=== PATIENT | male | born 1980 | race Caucasian/White ===

== ENCOUNTER 2016-10-28 19:02 | Inpatient (IN) | payer MEDICAID ==
--- NOTE | 2016-10-28 19:19 | EDPHY ---
H & P Stated Complaint: Chest pain HPI/ROS: Chief complaint: Chest pain HPI: 35-year-old homeless male presenting complaining of sharp left-sided chest pain intermittently for the last 2 and 0.5 hours. Patient states it does hurt take a deep breath. Denies any recent illness. No cough. No fevers or chills. No nausea or vomiting. Denies any chest trauma. Pain is severe not goes completely away. Is in the left side of his chest. Does not have a history of the same. He does smoke. Denies any alcohol or other drug use. Does not take any medications. Denies family history of coronary artery disease. ROS: 10 point Review of Systems is negative except as noted in the HPI. Past medical history: Denies Medications: Denies Allergies: No known drug allergies Physical exam: Gen: Awake, Alert, No Distress, disheveled-appearing, slow to answer HEENT: Nose: no rhinorrhea Eyes: PERRLA, EOMI Mouth: Moist mucosa Neck: Supple, no JVD Chest: Left anterior chest wall tenderness to palpation reproducing presenting complaint, lungs clear to auscultation Heart: S1, S2 normal, no murmur Abd: Soft, non-tender, no guarding Back: no CVA tenderness, no midline tenderness Ext: no edema, non-tender Skin: no rash Neuro: CN II-XII intact, Sensation grossly intact, Strength 5/5 in bilateral upper and lower extremities - Personal History Current Tetanus/Diphtheria Vaccine: Yes - Medical/Surgical History Hx Asthma: No Hx Chronic Respiratory Disease: No Hx Diabetes: No Hx Cardiac Disease: No Hx Renal Disease: No Hx Cirrhosis: No Hx Alcoholism: Yes Hx HIV/AIDS: No Hx Splenectomy or Spleen Trauma: No Other PMH: concusions x 7, major depression, suicide attempt, ETOH abuse, Methamphetamine abuse, [place] to bilateral conjunctiva, ASD, GERD,. psh: LEFT ARM INFECTION AND SURGERY 08/26 - Social History Smoking Status: Current every day smoker Constitutional: Initial Vital Signs Temperature (C) 37.2 C 10/28/16 19:09 Heart Rate 128 H 10/28/16 19:09 Respiratory Rate 24 H 10/28/16 19:09 Blood Pressure 103/87 H 10/28/16 19:09 O2 Sat (%) 91 L 10/28/16 19:09 O2 Delivery Mode Room Air O2 (L/minute) 2 Allergies/Adverse Reactions: No Known Allergies Allergy (Verified 02/27/16 03:35) Home Medications: Medication Instructions Recorded NK [No Known Home Meds] 10/28/16 Medical Decision Making - Diagnostics EKG Interpretation: ECG: Time, 1919: Sinus tachycardia with a rate of 120, left anterior fascicular block, no acute ST or T-wave changes. Imaging: Chest x-ray: There is a new left lower lobe round infiltrate as compared to a chest x-ray from August. ED Course/Re-evaluation: 35-year-old male coming in with hypoxemia, tachycardia, infiltrate on chest x- ray consistent with pneumonia. He does meet SIRS criteria. Lactic acid has been sent. He is getting 2 L of fluid IV. He has got some Toradol. I have given him 1 g of ceftriaxone IV and 500 mg of azithromycin p.o.. I have discussed with Dr. Kasey Fuentes, hospitalist. Will admit to the step-down unit for further evaluation. Patient is mildly agitated poor historian and has a history of methamphetamine use and I suspect this might be meth in his system at this time contributing to his clinical presentation. - Data Points Laboratory Results: Laboratory Results 10/28/16 19:15 10/28/16 19:15 10/28/16 10/28/16 10/28/16 20:20 19:15 19:15 WBC 16.20 10^3/uL H 10^3/uL (3.80-9.50) RBC 4.65 10^6/uL 10^6/uL (4.40-6.38) Hgb 14.1 g/dL g/dL (13.7-17.5) Hct 40.2 % % (40.0-51.0) MCV 86.5 fL fL (81.5-99.8) MCH 30.3 pg pg (27.9-34.1) MCHC 35.1 g/dL g/dL (32.4-36.7) RDW 13.7 % % (11.5-15.2) Plt Count 275 10^3/uL 10^3/uL (150-400) MPV 9.8 fL fL (8.7-11.7) Neut % (Auto) 86.0 % H % (39.3-74.2) Lymph % (Auto) 5.7 % L % (15.0-45.0) [place] % (Auto) 7.3 % % (4.5-13.0) Eos % (Auto) 0.1 % L % (0.6-7.6) Baso % (Auto) 0.3 % % (0.3-1.7) Nucleat RBC Rel Count 0.0 % % (0.0-0.2) Absolute Neuts (auto) 13.93 10^3/uL H 10^3/uL (1.70-6.50) Absolute Lymphs (auto) 0.93 10^3/uL L 10^3/uL (1.00-3.00) Absolute Monos (auto) 1.19 10^3/uL H 10^3/uL (0.30-0.80) Absolute Eos (auto) 0.01 10^3/uL L 10^3/uL (0.03-0.40) Absolute Basos (auto) 0.05 10^3/uL 10^3/uL (0.02-0.10) Absolute Nucleated RBC 0.00 10^3/uL 10^3/uL (0-0.01) Immature Gran % 0.6 % % (0.0-1.1) Immature Gran # 0.09 10^3/uL 10^3/uL (0.00-0.10) VBG Lactic Acid 0.5 mmol/L L mmol/L (0.7-2.1) Sodium 136 mEq/L mEq/L (134-144) Potassium 3.9 mEq/L mEq/L (3.5-5.2) Chloride 100 mEq/L mEq/L (97-110) Carbon Dioxide 24 mEq/l mEq/l (22-31) Anion Gap 12 mEq/L mEq/L (8-16) BUN 20 mg/dL mg/dL (7-23) Creatinine 1.0 mg/dL mg/dL (0.7-1.3) Estimated GFR > 60 Glucose 84 mg/dL mg/dL (70-100) Calcium 9.2 mg/dL mg/dL (8.5-10.4) Troponin I < 0.012 ng/mL ng/mL (0-0.034) Medications Given: Discontinued Medications Azithromycin (Zithromax) 500 mg PO EDNOW ONE PRN Reason: Protocol Stop: 10/28/16 20:05 Last Admin: 10/28/16 20:26 Dose: 500 mg Ceftriaxone Sodium/Dextrose (Rocephin 1 Gm (Premix)) 50 mls @ 100 mls/hr IV EDNOW ONE PRN Reason: Protocol Stop: 10/28/16 20:33 Last Admin: 10/28/16 20:26 Dose: 50 mls Sodium Chloride (Ns) 1,000 mls @ 0 mls/hr IV ONCE ONE PRN Reason: Wide Open Stop: 10/28/16 20:28 Last Admin: 10/28/16 20:32 Dose: 1,000 mls Sodium Chloride (Ns) 1,000 mls @ 0 mls/hr IV ONCE ONE PRN Reason: Wide Open Stop: 10/28/16 20:01 Last Admin: 10/28/16 20:05 Dose: 1,000 mls Ketorolac Tromethamine (Toradol) 15 mg IVP ONCE ONE Stop: 10/28/16 20:28 Last Admin: 10/28/16 20:20 Dose: 15 mg Departure - Departure Disposition: [facility] Inpatient Acute Clinical Impression: Pneumonia Condition: Fair Referrals: Patient,NotPresent [Unknown] - As per Instructions
--- NOTE | 2016-10-28 19:22 | CPEKG ---
Heart Rate: 120 RR Interval: 500 P-R Interval: 148 QRSD Interval: 84 QT Interval: 316 QTC Interval: 447 P [place]: 65 QRS [place]: 261 T Wave [place]: 65 EKG Severity - ABNORMAL ECG - EKG Impression: SINUS TACHYCARDIA EKG Impression: LEFT ANTERIOR FASCICULAR BLOCK Electronically Signed By: Dutch Raman 30-Oct-2016 16:35:55
[2016-10-28 19:29] LABS: % IMMATURE GRANULYOCYTES 0.6 % (0.0-1.1); ABSOLUTE IMMATURE GRANULOCYTES 0.09 10^3/uL (0.00-0.10); ADD DIFF? NO; ADD MORPH? NO; ADD SCAN? NO; ATYPICAL LYMPHOCYTE FLAG 0 (0-99); FRAGMENT RBC FLAG 0 (0-99); HEMATOCRIT 40.2 % (40.0-51.0); HEMOGLOBIN 14.1 g/dL (13.7-17.5); LEFT SHIFT FLG 10 (0-99); LIPEMIA HEMOLYSIS FLAG 90 (0-99); MEAN CELL HEMOGLOBIN 30.3 pg (27.9-34.1); MEAN CELL HEMOGLOBIN CONCENTR. 35.1 g/dL (32.4-36.7); MEAN CELL VOLUME 86.5 fL (81.5-99.8); MEAN PLATELET VOLUME 9.8 fL (8.7-11.7); PLATELET CLUMPS FLAG 0 (0-99); PLATELET COUNT 275 10^3/uL (150-400); RED BLOOD CELL COUNT 4.65 10^6/uL (4.40-6.38); RED CELL DISTRIBUTION WIDTH 13.7 % (11.5-15.2)
[2016-10-28 19:43] LABS: ANION GAP 12 mEq/L (8-16); CALCIUM 9.2 mg/dL (8.5-10.4); CARBON DIOXIDE 24 mEq/l (22-31); CHLORIDE 100 mEq/L (97-110); GLOMERULAR FILTRATION RATE > 60; GLUCOSE 84 mg/dL (70-100); POTASSIUM 3.9 mEq/L (3.5-5.2); SODIUM 136 mEq/L (134-144)
[2016-10-28 19:55] LABS: TROPONIN I < 0.012 ng/mL (0-0.034)
[2016-10-28] MEDS ORDERED: NS 1,000 ML IV ONE ×3 (20:00→21:56)
[2016-10-28] MEDS ORDERED: AZITHROMYCIN 250 MG TAB PO ONE (20:04)
[2016-10-28] MEDS ORDERED: KETOROLAC 15 MG/1 ML SDV ONE (20:14)
[2016-10-28] MEDS ORDERED: KETOROLAC 15 MG/1 ML SDV IVP ONE (20:27)
[2016-10-28] MEDS ORDERED: ONDANSETRON DISINTEGRATING 4 MG TAB PO PRN (21:46)
[2016-10-28] MEDS ORDERED: ACETAMINOPHEN 325 MG TAB PO PRN (21:46)
[2016-10-28] MEDS ORDERED: LORazepam 0.5 MG TAB PO PRN (21:46)
[2016-10-28] MEDS ORDERED: ONDANSETRON 4 MG/2 ML VIAL IVP PRN (21:46)
[2016-10-28] MEDS ORDERED: ALBUTEROL 3 ML DEYVIAL IH PRN (21:46)
[2016-10-28] MEDS ORDERED: BENZONATATE 100 MG CAP PO PRN (21:49)
[2016-10-28] MEDS ORDERED: NS 1,000 ML IV SCH (22:00)
[2016-10-28] MEDS ORDERED: LORazepam 2 MG/ML INJ IVP PRN (22:41)
--- NOTE | 2016-10-28 22:44 | PDGENHP ---
History and Physical - Chief Complaint pleuritic chest pain - History of Present Illness 35 yo male with h/o alcohol and methamphetamine use presents to ED complaining of left sided chest pain, worse with inspiration. He does not give much history for me, seems agitated, possibly drug affected. Per ED, he is homeless. He has denied fevers, chills or cough. He has had some SOB associated with his left sided chest pain. He denies alcohol or drug use, but per chart review, there is a documented history of polysubstance abuse. In the ED, he met SIRS criteria for sepsis and received 2 L NS bolus. He received IV Ceftriaxone and Azithromycin and is admitted for further management. Upon arrival to the SDU, he is becoming more hypotensive with MAP in the 50's with persistent tachycardia. History Information - Allergies/Home Medication List Allergies/Adverse Reactions: No Known Allergies Allergy (Verified 02/27/16 03:35) Home Medications: NK [No Known Home Meds] 10/28/16 [Last Taken Unknown] I have personally reviewed and updated: family history, medical history, social history, surgical history - Past Medical History GERD, psychiatric history Additional medical history: prior suicide attempt, depression, polysubstance abuse (meth and alcohol per chart) - Surgical History Additional surgical history: left arm infection requiring surgery in 2016, ? skin graft - Family History Positive for: non-pertinent - Social History Smoking Status: Current every day smoker Additional social history: Homeless, +h/o meth and alcohol abuse Review of Systems ROS: 10pt was reviewed & negative except for what was stated in HPI & below Physical Exam Temp Pulse Resp BP Pulse Ox 37.7 C 111 H 20 96/43 L 95 10/28/16 21:00 10/28/16 22:00 10/28/16 20:58 10/28/16 22:00 10/28/16 20:58 O2 (L/minute) 4 Constitutional: uncomfortable Eyes: PERRL Ears, Nose, Mouth, Throat: dry mucous membranes Cardiovascular: no murmur, rub, or gallop, tachycardia Respiratory: no respiratory distress, clear to auscultation Gastrointestinal: normoactive bowel sounds, soft, non-tender abdomen Skin: warm Musculoskeletal: full muscle strength Psychiatric: encephalopathic Lab Data & Imaging Review 10/28/16 19:15 10/28/16 19:15 WBC 16.20 10^3/uL (3.80-9.50) H 10/28/16 19:15 RBC 4.65 10^6/uL (4.40-6.38) 10/28/16 19:15 Hgb 14.1 g/dL (13.7-17.5) 10/28/16 19:15 Hct 40.2 % (40.0-51.0) 10/28/16 19:15 MCV 86.5 fL (81.5-99.8) 10/28/16 19:15 MCH 30.3 pg (27.9-34.1) 10/28/16 19:15 MCHC 35.1 g/dL (32.4-36.7) 10/28/16 19:15 RDW 13.7 % (11.5-15.2) 10/28/16 19:15 Plt Count 275 10^3/uL (150-400) 10/28/16 19:15 MPV 9.8 fL (8.7-11.7) 10/28/16 19:15 Neut % (Auto) 86.0 % (39.3-74.2) H 10/28/16 19:15 Lymph % (Auto) 5.7 % (15.0-45.0) L 10/28/16 19:15 [place] % (Auto) 7.3 % (4.5-13.0) 10/28/16 19:15 Eos % (Auto) 0.1 % (0.6-7.6) L 10/28/16 19:15 Baso % (Auto) 0.3 % (0.3-1.7) 10/28/16 19:15 Nucleat RBC Rel Count 0.0 % (0.0-0.2) 10/28/16 19:15 Absolute Neuts (auto) 13.93 10^3/uL (1.70-6.50) H 10/28/16 19:15 Absolute Lymphs (auto) 0.93 10^3/uL (1.00-3.00) L 10/28/16 19:15 Absolute Monos (auto) 1.19 10^3/uL (0.30-0.80) H 10/28/16 19:15 Absolute Eos (auto) 0.01 10^3/uL (0.03-0.40) L 10/28/16 19:15 Absolute Basos (auto) 0.05 10^3/uL (0.02-0.10) 10/28/16 19:15 Absolute Nucleated RBC 0.00 10^3/uL (0-0.01) 10/28/16 19:15 Immature Gran % 0.6 % (0.0-1.1) 10/28/16 19:15 Immature Gran # 0.09 10^3/uL (0.00-0.10) 10/28/16 19:15 VBG Lactic Acid 0.5 mmol/L (0.7-2.1) L 10/28/16 20:20 Sodium 136 mEq/L (134-144) 10/28/16 19:15 Potassium 3.9 mEq/L (3.5-5.2) 10/28/16 19:15 Chloride 100 mEq/L (97-110) 10/28/16 19:15 Carbon Dioxide 24 mEq/l (22-31) 10/28/16 19:15 Anion Gap 12 mEq/L (8-16) 10/28/16 19:15 BUN 20 mg/dL (7-23) 10/28/16 19:15 Creatinine 1.0 mg/dL (0.7-1.3) 10/28/16 19:15 Estimated GFR > 60 10/28/16 19:15 Glucose 84 mg/dL (70-100) 10/28/16 19:15 Calcium 9.2 mg/dL (8.5-10.4) 10/28/16 19:15 Troponin I < 0.012 ng/mL (0-0.034) 10/28/16 19:15 Influenza A & B (PCR) NEGATIVE FOR FLU (NEGATIVE) 10/28/16 20:25 Assessment & Plan Assessment: Sepsis secondary to LLL Pneumonia - Lactate is normal. He presents with tachycardia, leukocytosis and tachypnea, requiring 4 LPM O2. Will check INR and LFT's for further evaluation of severe sepsis criteria. He is more hypotensive with MAP in the 50's despite 2 L NS bolus. -Repeat fluid bolus, still no uop at this time -If remains hypotensive, discussed with RN to contact night MD to arrange for central line and pressors -Check urine legionella and pneumococcal Ag's -F/U BCx's, add sputum Cx -Cont Ceftriaxone and Azithromycin -Supportive care, prn nebs -trend wbc's Acute hypoxemic respiratory failure secondary to above - Tx as above, wean O2 as able H/O polysubstance abuse - meth and etoh per chart. -[facility] protocol -Check UDS -prn ativan Full code DVT PPLX - Lovenox Dispo - inpt, will likely require >48 hrs hospitalization for ongoing management of his sepsis and PNA
[2016-10-29 03:47] LABS: % IMMATURE GRANULYOCYTES 0.6 % (0.0-1.1); ABSOLUTE IMMATURE GRANULOCYTES 0.09 10^3/uL (0.00-0.10); ADD DIFF? NO; ADD MORPH? NO; ADD SCAN? NO; ATYPICAL LYMPHOCYTE FLAG 0 (0-99); FRAGMENT RBC FLAG 0 (0-99); HEMATOCRIT 39.9 % (40.0-51.0); HEMOGLOBIN 13.9 g/dL (13.7-17.5); LEFT SHIFT FLG 60 (0-99); LIPEMIA HEMOLYSIS FLAG 90 (0-99); MEAN CELL HEMOGLOBIN 30.4 pg (27.9-34.1); MEAN CELL HEMOGLOBIN CONCENTR. 34.8 g/dL (32.4-36.7); MEAN CELL VOLUME 87.3 fL (81.5-99.8); MEAN PLATELET VOLUME 9.7 fL (8.7-11.7); PLATELET CLUMPS FLAG 0 (0-99); PLATELET COUNT 199 10^3/uL (150-400); RED BLOOD CELL COUNT 4.57 10^6/uL (4.40-6.38); RED CELL DISTRIBUTION WIDTH 13.8 % (11.5-15.2)
[2016-10-29 03:56] LABS: INR 1.4 (0.83-1.16); PROTIME(PATIENT) 17.1 SEC (12.0-15.0)
[2016-10-29 03:58] LABS: APTT 30.7 SEC (23.0-38.0)
[2016-10-29 04:10] LABS: ALANINE AMINOTRANSFERASE 32 IU/L (21-72); ALBUMIN 3.3 g/dL (3.5-5.0); ALKALINE PHOSPHATASE 69 IU/L (38-126); ANION GAP 8 mEq/L (8-16); ASPARTATE AMINOTRANSFERASE 23 IU/L (17-59); BILIRUBIN,TOTAL 2.6 mg/dL (0.1-1.4); BILIRUBIN-CONJUGATED 0.4 mg/dL (0.0-0.5); BILIRUBIN-UNCONJUGATED 2.2 mg/dL (0.0-1.1); CALCIUM 8.1 mg/dL (8.5-10.4); CARBON DIOXIDE 23 mEq/l (22-31); CHLORIDE 106 mEq/L (97-110); CREATININE 0.8 mg/dL (0.7-1.3); GLOMERULAR FILTRATION RATE > 60; GLUCOSE 76 mg/dL (70-100); MAGNESIUM 1.7 mg/dL (1.6-2.3); POTASSIUM 3.7 mEq/L (3.5-5.2); SODIUM 137 mEq/L (134-144); TOTAL PROTEIN 5.7 g/dL (6.3-8.2)
[2016-10-29] MEDS ORDERED: PROTOCOL K PHOSPHATE 1 DOSE IV PRN (07:29)
[2016-10-29] MEDS ORDERED: PROTOCOL POTASSIUM 1 DOSE MISC PRN (07:29)
[2016-10-29] MEDS ORDERED: PROTOCOL MAGNESIUM 1 DOSE IV PRN (07:29)
[2016-10-29] MEDS ORDERED: POTASSIUM Cl (KCl) 50 ML IV ONE (07:36)
[2016-10-29] MEDS ORDERED: MAGNESIUM SULF 1 GM/DEXTROSE 100 ML IV ONE (07:36)
[2016-10-29] MEDS: AZITHROMYCIN IV 500 MG in D5W 250 ML IV SCH (08:03)
[2016-10-29] MEDS: ENOXAPARIN 40 MG/0.4 ML SYR SC SCH (08:03)
[2016-10-29] MEDS: MULTIVITAMINS 1 EACH TAB PO SCH (08:13)
[2016-10-29] MEDS: PANTOPRAZOLE SODIUM 40 MG TAB PO SCH (08:13)
[2016-10-29] MEDS: FOLIC ACID 1 MG TAB PO SCH (08:13)
--- NOTE | 2016-10-29 15:09 | GCON ---
[f rep st] CONSULTATION PULMONARY CONSULTATION DATE OF CONSULTATION: 10/29/2016 HISTORY OF PRESENT ILLNESS: The patient is a 35-year-old male with a history of alcohol and methamp hetamine abuse, who presented to the emergency department yesterday complaining of left-sided chest pain. A chest x-ray shows a consolidated infiltrate in the left lower lobe and he was thought to dao ve pneumonia. He did deny fevers, chills, or cough initially, but had some shortness of breath. He did receive 2 L of fluid as well as ceftriaxone and azithromycin. He became more hypotensive in [facility] and required 2 L of fluid. That did improve his blood pressure at that time. There was some concern about agitation as well, and he was treated with Ativan and was very somnolent at the t ned of my evaluation this morning. REVIEW OF SYSTEMS: Based on review of the chart, his review of systems is otherwise negative. PAST MEDICAL HISTORY: Includes gastroesophageal reflux disease, prior suicide attempt, depression, polysubstance abuse, left arm infection. PAST SURGICAL HISTORY: Includes a possible skin graft. FAMILY HISTORY: Noncontributory at this time. SOCIAL HISTORY: He is a current smoker, is homeless, and has confirmed methamphetamine abuse as wel l as cocaine. CURRENT MEDICATIONS: Include Tylenol, azithromycin, ceftriaxone, Lovenox, folate, Ativan, morphine, Zofran, oxycodone, Protonix, thiamine. PHYSICAL EXAMINATION: VITAL SIGNS: He had a T-max of 37.2. Blood pressure is 111/55, heart rate 1 06, respiratory rate 20, oxygen saturation 96% on 3 L. GENERAL: He was very somnolent and difficul t to arouse and did not really answer questions or follow commands. HEENT: Pupils appeared to be e qually round and reactive to light. Nonicteric and noninjected. Mucous membranes are moist without erythema or exudate. NECK: Supple, without adenopathy or jugular vein distention. LUNGS: Breath sounds were diminished but clear to auscultation bilaterally, without wheeze or rales. HEART: Reg ular rate and rhythm. ABDOMEN: Soft, nontender, nondistended, without hepatosplenomegaly. EXTREMI TIES: No clubbing, cyanosis, or edema. NEUROLOGICAL: Nonfocal, including cranial nerves and deep tendon reflexes. OBJECTIVE DATA: Includes white count of 14.5, hematocrit 40, platelets of 199. INR was 1.4. Basic metabolic panel was normal. LFTs were normal save for a total bili of 2.6, albumin was 3.3. His t ox screen showed opiates, amphetamines, cocaine, and marijuana. Flu was negative. Chest x-ray is a s described. ASSESSMENT/PLAN: 1. Possible community-acquired pneumonia, though does have somewhat of an atypical appearance. His white count has come down with the current antibiotics, which are appropriate in this situation. H is urinary Legionella and strep pneumonia antigens are pending at this time. I would like to see th ose followed through. 2. Somnolence. I believe this is medication induced. It may be some of the medications he took pr ior to hospitalization. He appears to be relatively stable at this time. He is protecting his airw ay. Over time would like to reassess that and pay close attention to possible aspiration issues. 3. Polysubstance abuse. His chest x-ray abnormality could easily be pulmonary infarct instead of p neumonia based on his polysubstance abuse, potentially even injection abuse. Will follow this clini joesph. He may require CT scan later. /[id number]/MODL
[2016-10-29 18:11] LABS: POTASSIUM 3.9 mEq/L (3.5-5.2)
--- NOTE | 2016-10-29 18:37 | HOSPPROG ---
Hospitalist Progress Note Assessment/Plan: * Strep pneumo severe sepsis due to PNA -Ceftriaxone, azithro * Metabolic vs. toxic encephalopathy - slow improvement * Polysubstance abuse - + tox screen * Acute respiratory failure - improved * Tobacco dependence - patch Subjective: no complaints, wants to eat Objective: Vital Signs Temp Pulse Resp BP Pulse Ox 37.8 C 97 20 116/79 99 10/29/16 16:00 10/29/16 16:00 10/29/16 16:00 10/29/16 16:00 10/29/16 16:00 Laboratory Results 10/29/16 03:33 10/29/16 17:45 10/28/16 10/29/16 10/30/16 05:59 05:59 05:59 Intake Total 3835 1000 Output Total 400 650 Balance 3435 350 PT 17.1 SEC (12.0-15.0) H 10/29/16 03:33 INR 1.40 (0.83-1.16) H 10/29/16 03:33 d/w Dr. Jones ICU rounds - no signs of suicidality, mental status improving CXR viewed, my personal interpretation is: left lower lobe infiltrate - Physical Exam Constitutional: no apparent distress, appears nourished, not in pain Cardiovascular: regular rate and rhythym, no murmur, rub, or gallop Respiratory: no respiratory distress, no rales or rhonchi, clear to auscultation Gastrointestinal: normoactive bowel sounds, soft, non-tender abdomen, no palpable masses Skin: no rashes or abrasions, no fluctuance, no induration Neurologic: AAOx3, sensation intact bilaterally Psychiatric: interacting appropriately, not anxious, thought process linear, encephalopathic, other (a little somnolent but arousable) ICD10 Worksheet Patient Problems: Problems Problem Status Onset Pneumonia Acute Cellulitis Acute Cellulitis of forearm, left Acute Clostridium difficile infection Acute Necrotizing cellulitis Acute Severe sepsis Acute
[2016-10-29] MEDS ORDERED: POTASSIUM CL 10 MEQ TAB PO ONE (19:08)
[2016-10-29] MEDS: oxyCODONE IR 5 MG TAB PO PRN (21:18)
[2016-10-30] MEDS: oxyCODONE IR 5 MG TAB PO PRN (00:08)
[2016-10-30 05:49] LABS: % IMMATURE GRANULYOCYTES 0.3 % (0.0-1.1); ABSOLUTE IMMATURE GRANULOCYTES 0.03 10^3/uL (0.00-0.10); ADD DIFF? NO; ADD MORPH? NO; ADD SCAN? NO; ATYPICAL LYMPHOCYTE FLAG 0 (0-99); FRAGMENT RBC FLAG 0 (0-99); HEMATOCRIT 36.2 % (40.0-51.0); HEMOGLOBIN 12.7 g/dL (13.7-17.5); LEFT SHIFT FLG 10 (0-99); LIPEMIA HEMOLYSIS FLAG 90 (0-99); MEAN CELL HEMOGLOBIN 30.5 pg (27.9-34.1); MEAN CELL HEMOGLOBIN CONCENTR. 35.1 g/dL (32.4-36.7); MEAN CELL VOLUME 86.8 fL (81.5-99.8); MEAN PLATELET VOLUME 9.6 fL (8.7-11.7); PLATELET CLUMPS FLAG 0 (0-99); PLATELET COUNT 203 10^3/uL (150-400); RED BLOOD CELL COUNT 4.17 10^6/uL (4.40-6.38); RED CELL DISTRIBUTION WIDTH 14.2 % (11.5-15.2)
[2016-10-30 06:09] LABS: ANION GAP 7 mEq/L (8-16); CALCIUM 7.9 mg/dL (8.5-10.4); CARBON DIOXIDE 23 mEq/l (22-31); CHLORIDE 105 mEq/L (97-110); CREATININE 0.7 mg/dL (0.7-1.3); GLOMERULAR FILTRATION RATE > 60; GLUCOSE 126 mg/dL (70-100); MAGNESIUM 1.9 mg/dL (1.6-2.3); POTASSIUM 4.1 mEq/L (3.5-5.2); SODIUM 135 mEq/L (134-144)
[2016-10-30 08:35] VITALS: TEMP 98.1
[2016-10-30] MEDS ORDERED: NICOTINE 21 MG/24 HR PATCH TD SCH (09:00)
[2016-10-30] MEDS: PANTOPRAZOLE SODIUM 40 MG TAB PO SCH (09:09)
[2016-10-30] MEDS: MULTIVITAMINS 1 EACH TAB PO SCH (09:09)
[2016-10-30] MEDS: FOLIC ACID 1 MG TAB PO SCH (09:09)
[2016-10-30] MEDS: ENOXAPARIN 40 MG/0.4 ML SYR SC SCH (09:09)
[2016-10-30 12:20] VITALS: BP 113/62; PULSE 82; RESP 16; O2SAT 95
[2016-10-30] MEDS ORDERED: NICOTINE POLACRILEX 2 MG GUM B PRN (12:30)
[2016-10-30] MEDS: AZITHROMYCIN IV 500 MG in D5W 250 ML IV SCH (13:01)
--- NOTE | 2016-10-30 16:26 | HOSPPROG ---
Hospitalist Progress Note Assessment/Plan: * Strep pneumo severe sepsis due to PNA -Ceftriaxone, azithro * IVDA - active * Metabolic vs. toxic encephalopathy - resolved * Polysubstance abuse - + tox screen * Acute respiratory failure - resolved * Tobacco dependence - patch Subjective: no complaints. shortly after i saw him he left ama. was asking to go outside to smoke. was spending extra-ordinarily long periods of time in bathroom. admitted to active IVDA - no needle sharing - he was shocked to find out he still could get bacterial infection despite not sharing needles. Bacteria on skin was explained to him. Objective: Vital Signs Temp Pulse Resp BP Pulse Ox 36.7 C 82 16 113/62 95 10/30/16 08:33 10/30/16 12:19 10/30/16 12:19 10/30/16 12:19 10/30/16 12:19 Laboratory Results 10/30/16 05:40 10/30/16 05:40 10/29/16 10/30/16 10/31/16 05:59 05:59 05:59 Intake Total 3835 2900 Output Total 400 650 Balance 3435 2250 PT 17.1 SEC (12.0-15.0) H 10/29/16 03:33 INR 1.40 (0.83-1.16) H 10/29/16 03:33 - Physical Exam Constitutional: no apparent distress, appears nourished, not in pain Cardiovascular: regular rate and rhythym, no murmur, rub, or gallop Respiratory: no respiratory distress, no rales or rhonchi, clear to auscultation Gastrointestinal: normoactive bowel sounds, soft, non-tender abdomen, no palpable masses Skin: no rashes or abrasions, no fluctuance, no induration Neurologic: AAOx3, sensation intact bilaterally Psychiatric: interacting appropriately, not anxious, not encephalopathic, thought process linear ICD10 Worksheet Patient Problems: Problems Problem Status Onset Cellulitis Acute Cellulitis of forearm, left Acute Clostridium difficile infection Acute Necrotizing cellulitis Acute Pneumonia Acute Severe sepsis Acute
--- NOTE | 2016-10-30 17:17 | GDS ---
[f rep st] DISCHARGE SUMMARY Please note this is an A discharge. DISCHARGE DIAGNOSES: 1. Streptococcus pneumonia, severe sepsis due to pneumonia. 2. Intravenous drug abuse. 3. Metabolic versus toxic encephalopathy. 4. Polysubstance abuse. 5. Acute respiratory failure. 6. Tobacco dependence. HISTORY AND HOSPITAL COURSE: The patient is a 35-year-old homeless male, active IV drug abuser. He appears he abuses multiple drugs, as his toxicology screen was positive for opiates, amphetamines, cocaine, and marijuana. He hesitantly did admit to ongoing IV drug abuse just prior to leaving [place]. His blood culture grew Strep pneumo pneumonia. He did have a significant pulmonary infiltrate. H e was being treated with IV antibiotics. He left rather rapidly, and did not take any antibiotic pr escriptions at the time of hospital discharge. On admission, he had a prolonged period of encephalo jess, but at the time of discharge, was fully awake, alert, and oriented, and I believe fully under stood the ramifications of his decision to leave. I counseled him at length regarding the dangers o f IV drug abuse, and infectious complications that do result. /[id number]/MODL
[2016-10-31] MEDS ORDERED: THIAMINE HCL 100 MG TAB PO SCH (09:00)
[2016-11-01] MEDS ORDERED: THIAMINE HCL 100 MG TAB PO SCH (09:00)
== END 2016-10-30 13:39 | disposition left against medical advice (07) | DRG 871 ==
LOC: EDUNIT# → F2N 21:00
PROVIDERS: ADMIT Hospitalist; ATTEND Internal Medicine
DX: A40.3 Sepsis due to Streptococcus pneumoniae (principal); R65.20 Severe sepsis without septic shock; J13 Pneumonia due to Streptococcus pneumoniae; J96.01 Acute respiratory failure with hypoxia; G92 Toxic encephalopathy; F14.90 Cocaine use, unspecified, uncomplicated; F15.90 Other stimulant use, unspecified, uncomplicated; Z59.0 Homelessness; K21.9 Gastro-esophageal reflux disease without esophagitis; F17.210 Nicotine dependence, cigarettes, uncomplicated
CPT/HCPCS: 80305; 87449-90; 96365; 97161-GP; J0456; J0696; J1650; J1885; J2060; J3475

== ENCOUNTER 2016-11-23 20:26 | Emergency (ER) | payer MEDICAID ==
[2016-11-23 20:35] VITALS: BP 123/85; PULSE 16; RESP 105; TEMP 97.9; O2SAT 96
[2016-11-23] MEDS ORDERED: IBUPROFEN 600 MG TAB PO ONE (21:04)
--- NOTE | 2016-11-23 21:07 | EDPHY ---
H & P Stated Complaint: SANCHEZ, hearing voices for a few days HPI/ROS: Chief complaint: Headache History of present illness: 36-year-old male presents to the emergency department for evaluation of a headache. Upon my evaluation patient states he actually does not want to be evaluated. He is asking to be discharged home. He is denying any psychiatric complaints at this time. He denies suicidal or homicidal ideation. He wants to be discharged. - Personal History Current Tetanus/Diphtheria Vaccine: Yes Current Tetanus Diphtheria and Acellular Pertussis (TDAP): Yes Tetanus Vaccine Date: 2015 - Medical/Surgical History Hx Asthma: No Hx Chronic Respiratory Disease: No Hx Diabetes: No Hx Cardiac Disease: No Hx Renal Disease: No Hx Cirrhosis: No Hx Alcoholism: Yes Hx HIV/AIDS: No Hx Splenectomy or Spleen Trauma: No Other PMH: concusions x 7, major depression, suicide attempt, ETOH abuse, Methamphetamine abuse, 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 psh: LEFT ARM INFECTION AND SURGERY 08/26 - Social History Smoking Status: Current every day smoker - Physical Exam Exam: Patient refused physical exam Constitutional: Initial Vital Signs Temperature (C) 36.6 C 11/23/16 20:31 Heart Rate 16 L 11/23/16 20:31 Respiratory Rate 105 H 11/23/16 20:31 Blood Pressure 123/85 H 11/23/16 20:31 O2 Sat (%) 96 11/23/16 20:31 O2 Delivery Mode Room Air Allergies/Adverse Reactions: No Known Allergies Allergy (Verified 11/23/16 20:35) Home Medications: Medication Instructions Recorded NK [No Known Home Meds] 10/28/16 Medical Decision Making ED Course/Re-evaluation: Patient seen under the supervision of my secondary supervising physician Dr. Elpidio Brower. Patient presents to the emergency department for evaluation of headache and apparently made mention of hallucinations in triage. On my evaluation patient stated he just had a headache but he has headaches commonly. He is denying any hallucinations. He is denying any psychiatric disturbances. He denies homicidal ideation. He denies suicidal ideation. He is not gravely disabled. I have discussed this patient with his nurse and he has not mentioned any significant psychiatric problems to her as well. Patient does not meet any holdable criteria. He is discharged. He is informed that he can return to the emergency department anytime if he wants an evaluation and treatment of his headache or any other signs or symptoms. - Data Points Medications Given: Discontinued Medications Ibuprofen (Motrin) 600 mg PO EDNOW ONE Stop: 11/23/16 21:05 Last Admin: 11/23/16 21:11 Dose: 600 mg Departure - Departure Disposition: Home, Routine, Self-Care Clinical Impression: Headache Qualifiers: Headache type: unspecified Headache chronicity pattern: acute headache Intractability: not intractable Qualified Code(s): R51 - Headache Condition: Good Instructions: Acute Headache (ED) Additional Instructions: You were offered evaluation and treatment in the emergency room, you declined. If at any time you change your mind please return for evaluation and treatment. Referrals: NONE *PRIMARY CARE P,. [Primary Care Provider] - As per Instructions
== END 2016-11-23 21:25 | disposition home or self-care (01) ==
DX: R51 Headache (principal); F17.200 Nicotine dependence, unspecified, uncomplicated

== ENCOUNTER 2016-11-26 16:50 | Emergency (ER) | payer MEDICAID ==
[2016-11-26 17:08] VITALS: RESP 18; TEMP 99; O2SAT 99
--- NOTE | 2016-11-26 17:22 | EDPHY ---
H & P Stated Complaint: I think I need to go back on my meds. Time Seen by Provider: 11/26/16 16:57 HPI/ROS: Chief Complaint: Paranoid episode HPI: 36-year-old male with a known history of polysubstance abuse is brought in by EMS after he was found running away from the car dealership with no issues. Patient states that when he was at the car dealership walking through the parking lot he felt somewhat he was chasing him so he ran. Patient denies actually being trace but was just afraid that somebody was after him. He states that he has been using drugs, last used meth about 2 days ago. Currently does not feel paranoid or leg anyone is up to get him. Is not feeling suicidal. Is not feeling homicidal. Is not hearing voices or seeing things that are not there. Does not feel anyone out to get him. Right now he just states that he feels tired and thirsty. He has been seen recently multiple times. Recently left AMA for a sepsis. Patient denies fevers or chills. He states that he would like to get back on medications and is finishing his paperwork this ED [facility]. Does not want to be evaluated right now. Is ranulfo for safety. Just wants to rest and go home. ROS: 10 point Review of Systems is negative except as noted in the HPI. PMH: Polysubstance abuse, sepsis Social History: Positive for smoking, positive for alcohol, polysubstance abuse Family History: non-contributory Physical Exam: Gen: Awake, Alert, disheveled HEENT: Nose: no rhinorrhea Eyes: PERRLA, EOMI Mouth: Moist mucosa Neck: Supple, no JVD Chest: nontender, lungs clear to auscultation Heart: S1, S2 normal, no murmur Abd: Soft, non-tender, no guarding Back: no CVA tenderness, no midline tenderness Ext: no edema, non-tender Skin: no rash Neuro: CN II-XII intact, Sensation grossly intact, Strength 5/5 in bilateral upper and lower extremities - Personal History Current Tetanus/Diphtheria Vaccine: Yes Current Tetanus Diphtheria and Acellular Pertussis (TDAP): Yes Tetanus Vaccine Date: 2015 - Medical/Surgical History Hx Asthma: No Hx Chronic Respiratory Disease: No Hx Diabetes: No Hx Cardiac Disease: No Hx Renal Disease: No Hx Cirrhosis: No Hx Alcoholism: Yes Hx HIV/AIDS: No Hx Splenectomy or Spleen Trauma: No Other PMH: concusions x 7, major depression, suicide attempt, ETOH abuse, Methamphetamine abuse, 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 psh: LEFT ARM INFECTION AND SURGERY 08/26 - Social History Smoking Status: Current every day smoker Constitutional: Initial Vital Signs Temperature (C) 37.2 C 11/26/16 17:06 Heart Rate 89 11/26/16 17:06 Respiratory Rate 18 11/26/16 17:06 Blood Pressure 116/79 11/26/16 17:06 O2 Sat (%) 99 11/26/16 17:06 O2 Delivery Mode Room Air Allergies/Adverse Reactions: No Known Allergies Allergy (Verified 11/23/16 20:35) Home Medications: Medication Instructions Recorded NK [No Known Home Meds] 10/28/16 Departure - Departure Disposition: Home, Routine, Self-Care Clinical Impression: Polysubstance abuse Condition: Good Instructions: Polysubstance Abuse (ED) Additional Instructions: Follow up with [facility] in the next 2-3 days. Return to the emergency department for suicidal thoughts, thoughts of harming others, hallucinations, or any other concerns. Please continue to seek help to stop using drugs. Referrals: NONE *PRIMARY CARE P,. [Primary Care Provider] - As per Instructions [facility] [Outside] - As per Instructions
[2016-11-26 18:05] VITALS: BP 129/86; PULSE 109
== END 2016-11-26 18:05 | disposition home or self-care (01) ==
LOC: EDUNIT#
DX: F19.10 Other psychoactive substance abuse, uncomplicated (principal); F17.200 Nicotine dependence, unspecified, uncomplicated

== ENCOUNTER 2016-11-28 02:48 | Emergency (ER) | payer MEDICAID ==
[2016-11-28 02:53] VITALS: BP 107/77; PULSE 108; RESP 18; TEMP 98.2; O2SAT 98
[2016-11-28] MEDS ORDERED: ONDANSETRON DISINTEGRATING 4 MG TAB ONE (03:05)
[2016-11-28] MEDS ORDERED: ONDANSETRON DISINTEGRATING 4 MG TAB PO ONE (03:05)
--- NOTE | 2016-11-28 03:07 | EDPHY ---
H & P Stated Complaint: "hot head," chills Time Seen by Provider: 11/28/16 02:59 HPI/ROS: CHIEF COMPLAINT: Vomiting, head hot HISTORY OF PRESENT ILLNESS: Patient is a 36-year-old homeless man who comes to the emergency department complaining that his head was hot. He also states that he vomited once about an hour ago. He currently is not nauseous and does not have any abdominal pain. He is afebrile. He has been seen here several times recently thought complaints. He does have a history of Substance abuse and erratic behavior. He denies having any recent drugs alcohol. He is also asking for the results of his lab work that was taken during his last visit. REVIEW OF SYSTEMS: Constitutional: denies: chills, fever, recent illness, recent injury EENTM: denies: blurred vision, double vision, nose congestion Respiratory: denies: cough, shortness of breath Cardiac: denies: chest pain, irregular heart rate, lightheadedness, palpitations Gastrointestinal/Abdominal: denies: abdominal pain, diarrhea, nausea, vomiting, blood streaked stools Genitourinary: denies: dysuria, frequency, hematuria, pain Musculoskeletal: denies: joint pain, muscle pain Skin: denies: lesions, rash, jaundice, bruising Neurological: denies: headache, numbness, paresthesia, tingling, dizziness, weakness Hematologic/Lymphatic: denies: blood clots, easy bleeding, easy bruising Immunologic/allergic: denies: HIV/AIDS, transplant EXAM: GENERAL: Well-appearing, well-nourished and in no acute distress. HEAD: Atraumatic, normocephalic. EYES: Pupils equal round and reactive to light, extraocular movements intact, sclera anicteric, conjunctiva are normal. ENT: TMs normal, nares patent, oropharynx clear without exudates. Moist mucous membranes. NECK: Normal range of motion, supple without lymphadenopathy or JVD. LUNGS: Breath sounds clear to auscultation bilaterally and equal. No wheezes rales or rhonchi. HEART: Regular rate and rhythm without murmurs, rubs or gallops. ABDOMEN: Soft, nontender, normoactive bowel sounds. No guarding, no rebound. No masses appreciated. BACK: No CVA tenderness, no spinal tenderness, step-offs or deformities EXTREMITIES: Normal range of motion, no pitting or edema. No clubbing or cyanosis. NEUROLOGICAL: Cranial nerves II through XII grossly intact. Normal speech, normal gait. 5/5 strength, normal movement in all extremities, normal sensation PSYCH: Normal mood, answers questions appropriately SKIN: Warm, dry, normal turgor, no visible rashes or lesions. 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 psh: LEFT ARM INFECTION AND SURGERY 08/26 - Family History Significant Family History: No pertinent family hx - Social History Smoking Status: Current every day smoker Alcohol Use: Sober Drug Use: None Constitutional: Initial Vital Signs Temperature (C) 36.8 C 11/28/16 02:50 Heart Rate 108 H 11/28/16 02:50 Respiratory Rate 18 11/28/16 02:50 Blood Pressure 107/77 11/28/16 02:50 O2 Sat (%) 98 11/28/16 02:50 O2 Delivery Mode Room Air Allergies/Adverse Reactions: bee venom protein (honey bee) Allergy (Verified 11/28/16 02:54) Home Medications: Medication Instructions Recorded NK [No Known Home Meds] 10/28/16 Medical Decision Making ED Course/Re-evaluation: The patient did not have labs ordered during his last visit. I have given him a dose of Zofran. Is currently asymptomatic. His abdominal exam is benign. He is afebrile. His vital signs are stable. We discussed follow-up with primary care physician. I believe that he would benefit from having a primary care physician who can help with some of his frequent concerns. I also encouraged him to discontinue drug and alcohol use. Differential Diagnosis: Partial list of the Differential diagnosis considered include but were not limited to; anxiety, substance abuse, paranoid, fever, gastritis, withdrawal, food poisoning and although unlikely based on the history and physical exam, I also considered appendicitis, obstruction, peptic ulcer disease, sepsis, head injury. I discussed these differential diagnoses and the plan with the patient as well as the usual and expected course. The patient understands that the diagnosis is provisional and that in medicine we are not always correct and that further workup is often warranted. Usual and customary warnings were given. All of the patient's questions were answered. The patient was instructed to return to the emergency department should the symptoms at all worsen or return, otherwise to followup with the physician as we discussed. - Data Points Medications Given: Discontinued Medications Ondansetron HCl (Zofran Odt) 4 mg PO EDNOW ONE Stop: 11/28/16 03:06 Last Admin: 11/28/16 03:05 Dose: 4 mg Departure - Departure Disposition: Home, Routine, Self-Care Clinical Impression: Vomiting Qualifiers: Vomiting type: unspecified Vomiting Intractability: non-intractable Nausea presence: with nausea Qualified Code(s): R11.2 - Nausea with vomiting, unspecified Condition: Fair Instructions: Acute Nausea and Vomiting (ED) Referrals: Andie Crain MD [[facility] [place] Primary Care Provider] - As per Instructions
== END 2016-11-28 03:17 | disposition home or self-care (01) ==
DX: R11.2 Nausea with vomiting, unspecified (principal); F17.200 Nicotine dependence, unspecified, uncomplicated